=== PATIENT | female | born 1965 | race Caucasian/White ===

== ENCOUNTER 2017-04-03 21:43 | Emergency (ER) | payer MEDICAID ==
[~2017-04-03] VITALS: Wt 76.5 kg
[~2017-04-03 21:43] MED LIST: BACTDS PO
[2017-04-03] MEDS ORDERED: SOD CHLORIDE 0.9% 1,000 ML IV STA (23:18)
[2017-04-03] MEDS ORDERED: ONDANSETRON 4 MG INJ IV STA (23:18)
[2017-04-03] MEDS ORDERED: ACETAMINOPHEN 1000MG/100ML IV 100 ML IVPB ONE (23:30)
[2017-04-03] MEDS ORDERED: DIAZEPAM 5 MG/ML SYG IV ONE (23:30)
[2017-04-03 23:42] LABS: ADD SCAN DIFF NO
[2017-04-03 23:45] LABS: BASOPHILS % 0.5 % (0.0-2.0); EOSINOPHILS # 0.4 10^3/ul (0.0-0.5); EOSINOPHILS % 4.9 % (0.0-7.0); HEMATOCRIT 41.4 % (37.0-47.0); HEMOGLOBIN 14.1 g/dl (12.0-16.0); LYMPHOCYTES # 1.9 10^3/ul (0.8-2.9); MEAN CORPUSCULAR HEMOGLOBIN 29.4 pg (29.0-33.0); MEAN CORPUSCULAR HGB CONC 34.1 g/dl (32.0-37.0); MEAN CORPUSCULAR VOLUME 86.4 fl (82.0-101.0); MEAN PLATELET VOLUME 11.1 fl (7.4-10.4); MONOCYTE # 0.7 10^3/ul (0.3-0.9); MONOCYTES % 8.8 % (0.0-11.0); NEUTROPHIL # 4.5 10^3/ul (1.6-7.5); NEUTROPHILS % 60.5 % (39.0-77.0); PLATELET COUNT 193 10^3/UL (140-415); RED BLOOD COUNT 4.79 10^6/ul (4.20-5.40); RED CELL DISTRIBUTION WIDTH 12.3 % (11.5-14.5); WHITE BLOOD COUNT 7.5 10^3/ul (4.8-10.8)
[2017-04-03] MEDS ORDERED: ACETAMINOPHEN 500 MG TAB PO STA (23:52)
[2017-04-04 00:01] LABS: INR 0.87; PROTIME 11.8 Sec (12.2-14.2); PT RATIO 0.9
[2017-04-04 00:02] LABS: PARTIAL THROMBOPLASTIN TIME 27.5 Sec (25.0-35.0)
[2017-04-04 00:03] LABS: CALCIUM 9.6 mg/dl (8.4-10.2); CREATININE 1.05 mg/dl (0.44-1.00); POTASSIUM 3.7 mmol/L (3.5-5.1)
--- NOTE | 2017-04-04 01:17 | RADRPT ---
PROCEDURE: CT Brain without contrast. CLINICAL INDICATION: Headache. TECHNIQUE: Serial axial computed tomographic images of the brain was performed on a CT scanner fro m the skull base through the vertex without contrast. Sagittal and coronal reconstruction images wer e produced. Exam CTDlvol = 45 mGy and DLP = 720 mGy-cm. One of the following 3 dose reduction tech niques were used: Automated exposure control; adjustment of the mA and/or kV according to patient si ze; or use of iterative reconstruction technique. COMPARISON: None available FINDINGS: The ventricles and sulci are normal in size and configuration. There is no midline shift. There ar e no focal parenchymal abnormalities. There is no acute stroke. No acute intracranial hemorrhage o r abnormal extra-axial fluid collection. No fracture identified. There is bilateral maxillary sinu s mucosal thickening. IMPRESSION: 1. No acute intracranial abnormality. 2. Bilateral maxillary sinus mucosal thickening. RPTAT: HMVK .Scott Valladares MD, MD Date Time Electronically viewed and signed by .Scott Valladares MD, on 04/04/2017 01:17 .K/
[2017-04-04] MEDS ORDERED: NAPR-260 PO (01:26)
[2017-04-04] MEDS ORDERED: TRAM50TA2 PO (01:26)
--- NOTE | 2017-04-04 01:28 | ERD ---
ER Documentation Chief Complaint Date/Time DATE: 04/04/17 TIME: 01:27 Chief Complaint RUSHING x3 days with nausea. Redness and itching on the face HPI This is a 51-year-old female presents here with headache for the last 3 days. Patient states that headache is located in the front of her head and radiates to the back. She does admit to nausea she denies vomiting or diarrhea. Patient has had episodes like this in the past last episode was about 6 months ago. Patient denies any loss of consciousness she denies any vision changes or vision loss. She denies any photophobia she denies any fevers or chills. States any neck stiffness however does complain of neck spasms. She denies any urinary frequency or dysuria. Patient taking ibuprofen 3 hours ago however broke out in a rash. She denies any difficulty in breathing or any facial swelling. ROS 12 point review of systems was done, all negative except per HPI. Medications Home Meds Active Scripts Tramadol HCl (Tramadol HCl) 50 Mg Tablet, 50 MG PO Q4 Y for PAIN, #20 TAB Prov:SAÚL PRITCHARD 04/04/17 Sulfamethoxazole-Trimethoprim* (Bactrim* DS) 800-160 Mg Tab, 1 TAB PO BID for 14 Days, TAB Prov:ROBINA WILLIAMSON PA-C 02/02/16 Allergies Allergies: Coded Allergies: ibuprofen (Verified Allergy, Intermediate, rash, 04/04/17) PMhx/Soc Medical and Surgical Hx: pt denies Medical Hx, pt denies Surgical Hx History of Surgery: No Anesthesia Reaction: No Hx Neurological Disorder: No Hx Respiratory Disorders: No Hx Cardiac Disorders: No Hx Psychiatric Problems: No Hx Miscellaneous Medical Probl: No Hx Alcohol Use: No Hx Substance Use: No Hx Tobacco Use: No Smoking Status: Never smoker Physical Exam Vitals Vital Signs Date Time Temp Pulse Resp B/P Pulse Ox O2 Delivery O2 Flow Rate FiO2 04/03/17 22:18 97.6 68 20 123/68 97 Physical Exam GENERAL: The patient is well developed and appropriate for usual state of health , in no apparent distress. HEENT: Atraumatic. Conjunctivae are pink. Pupils equal, round, and reactive to light. Extraocular muscles are grossly intact. Bilateral tympanic membranes are clear with no evidence of erythema, bulging or perforation. No sinus tenderness. NECK: C-spine is soft and supple. There is no cervical lymphadenopathy. CHEST: Clear to auscultation bilaterally. There are no rales, wheezes or rhonchi. HEART: Regular rate and rhythm. No murmurs, clicks, rubs or gallops. EXTREMITIES: Equal pulses bilaterally. There is no peripheral clubbing, cyanosis or edema. No focal swelling or erythema. Full range of motion. Grossly neurovascularly intact. NEURO: Alert and oriented. Cranial nerves II through XII are intact. Motor strength in all 4 extremities with 5/5 strength. Sensation grossly intact. Normal speech and gait. Negative Rhomberg. +2 DTRs. SKIN: There is no apparent rash or petechia. The skin is warm and dry. Result Diagram: 04/03/17232904/03/172329 Results 24 hrs Laboratory Tests Test 04/03/17 23:30 White Blood Count 7.510^3/ul Red Blood Count 4.7910^6/ul Hemoglobin 14.1g/dl Hematocrit 41.4% Mean Corpuscular Volume 86.4fl Mean Corpuscular Hemoglobin 29.4pg Mean Corpuscular Hemoglobin Concent 34.1g/dl Red Cell Distribution Width 12.3% Platelet Count 40311^3/UL Mean Platelet Volume 11.1fl Neutrophils % 60.5% Lymphocytes % 25.0% Monocytes % 8.8% Eosinophils % 4.9% Basophils % 0.5% Nucleated Red Blood Cells % 0.0/100WBC Neutrophils # 4.510^3/ul Lymphocytes # 1.910^3/ul Monocytes # 0.710^3/ul Eosinophils # 0.410^3/ul Basophils # 0.010^3/ul Nucleated Red Blood Cells # 0.010^3/ul Prothrombin Time 11.8Sec Prothrombin Time Ratio 0.9 INR International Normalized Ratio 0.87 Activated Partial Thromboplast Time 27.5Sec Sodium Level 140mmol/L Potassium Level 3.7mmol/L Chloride Level 105mmol/L Carbon Dioxide Level 27mmol/L Anion Gap 12 Blood Urea Nitrogen 20mg/dl Creatinine 1.05mg/dl Glucose Level 108mg/dl Calcium Level 9.6mg/dl Current Medications Medications (Trade) Dose Ordered Sig/Brian Route PRN Reason Start Time Stop Time Status Last Admin Dose Admin Sodium Chloride (NS) 1,000 ml @ 1,000 mls/hr Q1H STAT IV 04/03/17 23:18 04/04/17 00:17 DC 04/03/17 23:34 Ondansetron HCl 4 mg 4 mg ONCE STAT IV 04/03/17 23:18 04/03/17 23:21 DC 04/03/17 23:34 Acetaminophen (Ofirmev 1000mg/ 100ml Iv) 100 ml @ 400 mls/hr ONCE ONCE IVPB 04/03/17 23:30 04/03/17 23:53 DC Diazepam (Valium) 5 mg ONCE ONCE IV 04/03/17 23:30 04/03/17 23:31 DC 04/03/17 23:36 Acetaminophen (Tylenol Tab) 1,000 mg ONCE STAT PO 04/03/17 23:52 04/03/17 23:53 DC 04/04/17 00:06 Procedures/MDM Differential Diagnosis includes but is not limited to; tension headache, migraine headache, cluster headache, sinus headache, nonspecific febrile headache, trigeminal neurologia, subdural hematoma, subarachnoid bleeding, meningitis, encephalitis. Patient is neurologically intact with no focal neurological deficits. This is likely a migraine headache. Patient is afebrile and well appearing, i doubt meningitis or encephalitis. Patient does not have any meningeal signs. Suspicion for acute intracranial pathology is low. Patient will be sent home with tramadol. She is to follow-up with her primary care doctor within 1-2 days or return to ER sooner if symptoms worsen. My medical decision making was shared with the patient she understands and agrees with plan. Departure Diagnosis: Primary Impression: Headache Condition: Stable MACHOASHIASAÚL C April 04, 2017 01:28
== END 2017-04-04 02:03 | disposition home or self-care (01) ==
LOC: FTE 21:43
DX: R51 Headache (principal); R11.0 Nausea
CPT/HCPCS: 36415; 70450; 80048; 85025; 85610; 85730; 96374; 96375; J2405; J3360; J7030; Z7502; Z7610; J0131

== ENCOUNTER 2017-07-20 02:38 | Emergency (ER) | payer MEDICAID ==
[~2017-07-20] VITALS: Ht 157.5 cm; Wt 68.2 kg
[~2017-07-20 02:38] MED LIST changes: +TRAM50TA2 PO
[2017-07-20 02:44] VITALS: Ht 157.5 cm; Wt 68.2 kg
[2017-07-20] MEDS ORDERED: ALBU8.5H3 INH (05:09)
[2017-07-20] MEDS ORDERED: GUAI473L22 PO (05:09)
[2017-07-20] MEDS ORDERED: FLUT9.9S NASAL (05:09)
[2017-07-20] MEDS ORDERED: AZIT250T94 PO (05:09)
[2017-07-20] MEDS ORDERED: CETI10CA PO (05:09)
--- NOTE | 2017-07-20 05:30 | ERD ---
ER Documentation Chief Complaint Date/Time DATE: 07/20/17 TIME: 05:28 Chief Complaint sinus headache, cough, runny nose congestion x1 week. HPI 52-year-old female presents here in emergency department for complaints of cough runny nose nasal congestion and headache for one week. Patient has been having dry cough with some wheezing. Patient was given Sudafed Zyrtec at home and only mild relief. Patient has been having on and off fever. Patient does not have any sick contacts. ROS All systems reviewed and are negative except as per history of present illness. Medications Home Meds Active Scripts Fluticasone Propionate (Flonase Allergy Relief) 9.9 Ml [place].susp, 1 SPRAY NASAL BID, #1 BOTTLE TO EACH NOSTRIL Prov:MALCOLM ROCHA NP 07/20/17 Azithromycin* (Zithromax*) 250 Mg Tablet, 250 MG PO .ZPACK DIRECTED, #6 TAB TAKE 500 MG (2 TABS) THE FIRST DAY THEN 250 MG (1 TAB) DAYS 2-5 Prov:MALCOLM ROCHA NP 07/20/17 Guaifenesin-Codeine Phosphate* (Guaifenesin* AC Cough Syrup) 473 Ml Liquid, 10 ML PO Q4H Y for COUGH, #120 ML Prov:MALCOLM ROCHA NP 07/20/17 Albuterol Sulfate* (Proair HFA*) 8.5 Gm Hfa.aer.ad, 2 PUFF INH Q4H Y for WHEEZING AND SOB, #1 INHALER Prov:MALCOLM ROCHA NP 07/20/17 Tramadol HCl (Tramadol HCl) 50 Mg Tablet, 50 MG PO Q4 Y for PAIN, #20 TAB Prov:SAÚL PRITCHARD 04/04/17 Sulfamethoxazole-Trimethoprim* (Bactrim* DS) 800-160 Mg Tab, 1 TAB PO BID for 14 Days, TAB Prov:ROBINA WILLIAMSON PA-C 02/02/16 Allergies Allergies: Coded Allergies: ibuprofen (Verified Allergy, Intermediate, rash, 04/04/17) PMhx/Soc Medical and Surgical Hx: pt denies Medical Hx, pt denies Surgical Hx History of Surgery: No Anesthesia Reaction: No Hx Neurological Disorder: No Hx Respiratory Disorders: No Hx Cardiac Disorders: No Hx Psychiatric Problems: No Hx Miscellaneous Medical Probl: No Hx Alcohol Use: No Hx Substance Use: No Hx Tobacco Use: No Smoking Status: Never smoker FmHx Family History: No coronary disease, No diabetes, No other Physical Exam Vitals Vital Signs Date Time Temp Pulse Resp B/P Pulse Ox O2 Delivery O2 Flow Rate FiO2 07/20/17 02:44 97.8 73 18 152/76 95 Physical Exam GENERAL: The patient is well developed and appropriate for usual state of health, in no apparent distress. CHEST: Clear to auscultation bilaterally. There are no rales, wheezes or rhonchi. HEART: Regular rate and rhythm. No murmurs, clicks, rubs or gallops. No S3 or S4. ABDOMEN: Soft, nontender and nondistended. Good bowel sounds. No rebound or guarding. No gross peritonitis. No gross organomegaly or masses. No Sal[place] sign or McBurney point tenderness. BACK: No midline or flank tenderness. EXTREMITIES: Equal pulses bilaterally. There is no peripheral clubbing, cyanosis or edema. No focal swelling or erythema. Full range of motion. Grossly neurovascularly intact. NEURO: Alert and oriented. Cranial nerves 2-12 intact. Motor strength in all 4 extremities with 5/5 strength. Sensation grossly intact. Normal speech and gait. SKIN: There is no apparent rash or petechia. The skin is warm and dry. HEMATOLOGIC AND LYMPHATIC: There is no evidence of excessive bruising or lymphedema. No gross cervical, axillary, or inguinal lymphadenopathy. Procedures/MDM Medical Decision Making: Patient symptoms are most likely consistent with acute bronchitis, which most likely from atypical infection. There is low suspicion for Pneumonia at this time since patients lungs sounds are clear, patient O2 saturation is normal and patient doesnt show any respiratory distress. Xrays not indicated at this time. There is low suspicion for other cardiopulmonary emergencies at this time such as CHF, Pulmonary Embolism, Pneumothorax, Aortic Aneurysm or any other cardiopulmonary emergencies at this time. There is low suspicion for sepsis. Patient appears well and is hemodynamically stable. Fever is controlled with medicines. Disposition: Home. Condition: Stable Prescriptions: Albuterol, Azithromycin, FLonase Guaifenasin with COdeine Instructions: Patient is advised to take medications as prescribed. Patient is advised to rest. Patient advised to increase fluid intake, do humidifier at home and if possible, do salt water gargles. Patient is advised that if symptoms are worse, shortness of breath, uncontrolled fever, stridor, vomiting, worst signs and symptoms to return to emergency department immediately. Otherwise, patient is advised to follow up with primary doctor in 5-7 days. Departure Diagnosis: Primary Impression: Acute bronchitis Bronchitis organism: unspecified organism Qualified Code: J20.9 - Acute bronchitis, unspecified organism Condition: Stable Patient Instructions: Bronchitis With Wheezing (Adult) MALCOLM ROCHA NP Jul 20, 2017 05:30
== END 2017-07-20 05:30 | disposition home or self-care (01) ==
LOC: FTE 02:38
DX: J20.9 Acute bronchitis, unspecified (principal)
CPT/HCPCS: 99284

== ENCOUNTER 2019-03-16 11:18 | Day surgery (SDC) | payer BC, OTHER ==
[~2019-03-16] VITALS: Ht 152.4 cm; Wt 74.9 kg
[~2019-03-16 11:18] MED LIST changes: +ALBU8.5H8 INH; +AZIT250T PO; +FLUT9.9S NASAL; +GUAI473L22 PO
[2019-03-16 12:40] VITALS: Ht 152.4 cm; Wt 74.9 kg
[2019-03-16] MEDS ORDERED: NO ACTIVE MEDS (12:44)
[2019-03-16 14:30] VITALS: BP 137/60; PULSE 53; RESP 18
[2019-03-16 15:00] VITALS: BP 115/68; PULSE 56; RESP 15
[2019-03-16] MEDS ORDERED: FENTAnyl 50 MCG/ML VIAL ONE (15:08)
[2019-03-16] MEDS ORDERED: MIDAZOLAM 1 MG/ML 2 ML INJ ONE ×2 (15:08)
[2019-03-16 15:15] VITALS: BP 116/68; PULSE 58; RESP 18
[2019-03-16 15:30] VITALS: BP 106/63; PULSE 57; RESP 17
== END 2019-03-16 16:21 | disposition home or self-care (01) ==
LOC: GIL 11:18
PROVIDERS: ATTEND Internal Medicine Gastroenterology
DX: Z12.11 Encounter for screening for malignant neoplasm of colon (principal); D12.5 Benign neoplasm of sigmoid colon; K64.8 Other hemorrhoids
CPT/HCPCS: 45385; 88305; J2250; J3010; Z7610